=== PATIENT | female | born 1940 | race African-American/Black ===

== ENCOUNTER 2018-06-14 18:40 | Emergency (ER) | payer MEDICARE ==
[~2018-06-14] VITALS: Ht 167.6 cm; Wt 81.8 kg
[~2018-06-14 18:40] MED LIST: AMLO-512 PO; CARV25 PO; GLIM4 PO; LIRA0.6P SQ; ROSU10TA22 PO; TRAVZOS OU; VALS80TA2 PO; VITAD1000 PO
[2018-06-14 19:29] LABS: GLUCOSE,POINT OF CARE 134 MG/DL (70-110)
[2018-06-14] MEDS ORDERED: AMLO-512 PO (19:32)
[2018-06-14] MEDS ORDERED: BRIM15OS OU (19:32)
[2018-06-14] MEDS ORDERED: DORZ210OS OU (19:32)
[2018-06-14] MEDS ORDERED: PIOG30TA10 PO (19:32)
[2018-06-14] MEDS ORDERED: VALS160T2 PO (19:32)
[2018-06-14] MEDS ORDERED: CYAN1TAB44 PO (19:32)
[2018-06-14] MEDS ORDERED: VALS1TAB75 PO (19:32)
[2018-06-14] MEDS ORDERED: ALEN10 PO (19:32)
[2018-06-14] MEDS ORDERED: CALC-789 PO (19:32)
[2018-06-14] MEDS ORDERED: XALA2.5OS OU (19:32)
[2018-06-14 21:33] LABS: BASOPHILS % (AUTO) 0.2 % (0.0-2.0); EOSINOPHILS % (AUTO) 0.2 % (1.0-6.0); HEMATOCRIT 34.2 % (36-46); HEMOGLOBIN 11.2 g/dL (12.0-16.0); LYMPHOCYTES # (AUTO) 1.2 K/uL (1.0-4.8); LYMPHOCYTES % (AUTO) 15.7 % (22.0-44.0); MEAN CORPUSCULAR HEMOGLOBIN 26.2 pg (26.0-34.0); MEAN CORPUSCULAR HGB CONC 32.8 G/dL (31.0-37.0); MEAN CORPUSCULAR VOLUME 80 fL (80-100); MONOCYTES # (AUTO) 0.6 K/uL (0.1-1.0); MONOCYTES % (AUTO) 7.1 % (2.0-9.0); NEUTROPHILS # (AUTO) 5.9 K/uL (1.8-7.7); NEUTROPHILS % (AUTO) 76.8 % (40.0-70.0); PLATELET COUNT (AUTO) 196 K/uL (150-450); RED BLOOD CELL COUNT(AUTO) 4.27 MIL/uL (4.00-5.20)
[2018-06-14 21:45] LABS: PROTHROMBIN TIME 10.2 SEC (9.4-11.6)
[2018-06-14 21:49] LABS: CALCIUM, TOTAL 9.3 mg/dL (8.8-10.5); CREATININE 2.18 mg/dL (0.60-1.30); POTASSIUM 3.3 mmol/L (3.5-5.1)
[2018-06-14 22:00] LABS: ALBUMIN 3.6 g/dL (3.4-5.0); BILIRUBIN,TOTAL 0.7 mg/dL (0.1-1.0); TOTAL PROTEIN, SERUM 9.2 g/dL (6.4-8.2)
[2018-06-14] MEDS ORDERED: KETOROLAC TROMETHAMINE 30 MG/ML VIAL IVP ONE (22:00)
[2018-06-14] MEDS ORDERED: SODIUM CHLORIDE 0.9% 1,000 ML IV ONE (22:00)
[2018-06-14] MEDS ORDERED: ONDANSETRON HCL 4 MG/2 ML VIAL IVP ONE (22:00)
[2018-06-14] MEDS ORDERED: POTASSIUM CHLORIDE 20 MEQ ER TABLET PO ONE (22:30)
[2018-06-14 23:04] LABS: APPEARANCE,URINE CLOUDY (CLEAR); BILIRUBIN,URINE NEGATIVE (NEGATIVE); GLUCOSE, URINE (UA) NEGATIVE (NEGATIVE); KETONES,URINE TRACE mg/dL (NEGATIVE); LEUKOCYTE ESTERASE ,URINE NEGATIVE (NEGATIVE); NITRATE,URINE NEGATIVE (NEGATIVE); OCCULT BLOOD,URINE TRACE (NEGATIVE); PROTEIN,URINE NEGATIVE (NEGATIVE)
[2018-06-14 23:13] LABS: BACTERIA,URINE Moderate /HPF (None Seen); RBC,URINE 0-2 /HPF (0-2); SQUAMOUS EPITHELIAL CELL,UR Moderate /LPF (None Seen); YEAST,URINE Rare /HPF (None Seen)
[2018-06-15] MEDS ORDERED: CefTRIAXone 1 GM/DEXTROSE 50 ML IV ONE (03:00)
[2018-06-15] MEDS ORDERED: SODIUM CHLORIDE 0.9% 1,000 ML IV ONE (03:00)
[2018-06-15 04:32] LABS: CALCIUM, TOTAL 8.6 mg/dL (8.8-10.5); CREATININE 2.06 mg/dL (0.60-1.30); POTASSIUM 3.7 mmol/L (3.5-5.1)
[2018-06-15 05:12] VITALS: BP 128/64
== END 2018-06-15 05:26 | disposition home or self-care (01) ==
LOC: EMS 18:40
DX: E86.0 Dehydration (principal); E87.1 Hypo-osmolality and hyponatremia; E87.6 Hypokalemia; K80.20 Calculus of gallbladder without cholecystitis without obstruction; N39.0 Urinary tract infection, site not specified; R91.1 Solitary pulmonary nodule; E11.9 Type 2 diabetes mellitus without complications; J43.2 Centrilobular emphysema; I10 Essential (primary) hypertension; E78.00 Pure hypercholesterolemia, unspecified; Z90.710 Acquired absence of both cervix and uterus; Z88.0 Allergy status to penicillin
CPT/HCPCS: 36415; 71250; 74176; 74181; 76705; 80048; 80053; 81001; 82962; 83690; 84484; 85025; 85610; 85730; 87086; 93005; 96361; 96365; 96375; 99285; J0696; J1885; J2405; J7030 ×2